=== PATIENT | female | born 2000 | race Caucasian/White ===

== ENCOUNTER 2019-04-19 14:24 | Emergency (ER) | payer MEDICAID ==
--- NOTE | 2019-04-19 15:15 | ED Physician Chart ---
ED Chief Complaint/HPI - Patient Information Date Seen:: 04/19/19 Time Seen:: 14:50 Chief Complaint:: pain left large toenail History of Present Illness:: Patient has had pain of her left large toe for the last 1 1/2-2 week. Pain adjacent to the medial side of the nail is worse than the pain adjacent to the lateral side. She previously had pain of the right large toe which has subsided. Patient had a pedigree 2 weeks ago. Allergies:: Allergies Allergy/AdvReac Type Severity Reaction Status Date / Time aspirin Allergy Verified 04/19/19 14:40 bacitracin Allergy Verified 04/19/19 14:39 [From Neosporin ([id number])] neomycin Allergy Verified 04/19/19 14:36 [From Neosporin ([id number])] polymyxin B Allergy Verified 04/19/19 14:36 [From Neosporin ([id number])] Vitals:: Vital Signs - 8 hr 04/19/19 14:44 Temp 97.7 F HR 70 RR 18 BP 125/65 O2 Sat % 100 Historian:: Patient Review:: Nurse's Note Reviewed ED Review of Systems - Review of Systems General/Constitutional: No fever, No chills, No weight loss, No weakness, No diaphoresis, No edema, No loss of appetite Skin: Skin lesions, No rash, No bruising Head: No headache, No light-headedness Eyes: No loss of vision, No pain, No diplopia ENT: No earache, No nasal drainage, No sore throat, No tinnitus Neck: No neck pain, No swelling, No thyromegaly, No stiffness, No mass noted Cardio Vascular: No chest pain, No palpitations, No PND, No orthopnea, No edema Pulmonary: No SOB, No cough, No sputum, No wheezing GI: No nausea, No vomiting, No diarrhea, No pain, No melena, No hematochezia, No constipation, No hematemesis G/U: No dysuria, No frequency, No hematuria Musculoskeletal: Other (see history and physical) Endocrine: No polyuria, No polydipsia Psychiatric: No prior psych history, No depression, No anxiety, No suicidal ideation Hematopoietic: No bruising, No lymphadenopathy Allergic/Immuno: No urticaria, No angioedema Neurological: No syncope, No focal symptoms, No weakness, No paresthesia, No headache, No seizure, No dizziness, No confusion, No vertigo ED Past Medical History - Past Medical History Past Medical History: Seizures Family History: HTN Social History: Non Smoker, No Alcohol Surgical History: None Psychiatricy History: None Medication: Reviewed ED Physical Exam - Physical Examination General/Constitutional: Awake, Well-developed, well-nourished, Alert, No distress, GCS 15, Non-toxic appearing, Ambulatory Head: Atraumatic Eyes: Lids, conjuctiva normal, PERRL, EOMI Skin: Nl inspection, No rash, No skin lesions, No ecchymosis, Well hydrated, No lymphadenopathy ENMT: External ears, nose nl, Nasal exam nl, Lips, teeth, gums nl Neck: Nontender, Full ROM w/o pain, No JVD, No nuchal rigidity, No bruit, No mass, No stridor Respiratory: Nl effort/Exclusion, Clear to Auscultation, No Wheeze/Rhonchi/Rales Cardio Vascular: RRR, No murmur, gallop, rubs, NL S1 S2 GI: No tenderness/rebounding/guarding, No organomegaly, No hernia, Normal BS's, Nondistended, No mass/bruits, No McBurney tenderness : No CVA tenderness Extremities: No edema Other Extremities comments:: Left large toe: Tissue grown over medial side of nail Neuro/Psych: Alert/oriented, DTR's symmetric, Normal sensory exam, Normal motor strength, Judgement/insight normal, Mood normal, Normal gait, No focal deficits Misc: Normal back, No paraspinal tenderness ED Assessment - Procedures Procedures:: Left large toe: Skin cleansed with Betadine solution; 1% Xylocaine for bilateral digital block; medial side of the nail elevated above tissue which had overgrown that side of the nail using sterile Iris scissors and wedge shape section of side of nail resected; lateral side of nail elevated with sterile Iris scissors and wedge shape section resected; procedure caused nail to separate from the nail bed; 1/2 inch Steri-Strips applied circumferentially to secure the nail to the nail bed. 2 inch web roll applied a dressing. ED Septic Shock - . Is Septic Shock (SBP<90, OR Lactate>4 mmol\L) present?: No - <6hrs of presentation: Vital Signs: Vital Signs - 8 hr 04/19/19 14:44 Temp 97.7 F HR 70 RR 18 BP 125/65 O2 Sat % 100 ED Reassessment (Disposition) - Reassessment Reassessment Condition:: Improved - Diagnosis Diagnosis:: Ingrown toenail left large toe - Aftercare/Follow up Instructions Aftercare/Follow-Up Instructions:: Refer to Discharge Instructions - Patient Disposition Discharge/Transfer:: Home Condition at Disposition:: Stable, Improved
== END 2019-04-19 15:33 | disposition home or self-care (01) ==
LOC: ER 14:24
DX: L60.0 Ingrowing nail (principal); Z88.6 Allergy status to analgesic agent; Z88.1 Allergy status to other antibiotic agents
CPT/HCPCS: Z7502; Z7610